=== PATIENT | male | born 1945 | race Caucasian/White ===

== ENCOUNTER 2016-07-19 12:16 | Observation (INO) | payer OTHER ==
[~2016-07-19] VITALS: Ht 180.3 cm; Wt 155.0 kg
[2016-07-19] VITALS (10 sets, daily range): BP systolic 125–195; BP diastolic 79–108; PULSE 84–124; RESP 16–24; TEMP 98.2–98.8; O2SAT 93–98
[~2016-07-19 12:16] MED LIST: ALBUS PO; ALLO300T2 PO; ASPI325T PO; BUDE.5I NEB; CARV3.12 PO; GLIP-158 PO; IPRA0.02 NEB; ISOS60 PO; MAGN1SOL2 PO; MINE1ENE RECTAL; NITR.4 SL; OMEP20TA39 PO; OXYC1SOL5 PO; POLY119S PO; SITA50TA4 PO; TAMS0.4C67 PO; Z.0.COMMODE-3:1
[2016-07-19] MEDS ORDERED: SODIUM CHLORIDE 0.9% FLUSH 5 ML FLUSH IVF PRN (13:00)
--- NOTE | 2016-07-19 13:07 | PD ---
HPI Chief Complaint: Cardiac Complaint Time Seen by Provider: 13:00 Travel History International Travel<30 days: No Contact w/Intl Traveler<30days: No Traveled to known affect area: No History of Present Illness HPI The patient is a 70-year-old male who presents emergency department for elevated heart rate. The patient was [facility] [place] [place] The patient was noted to have an elevated heart rate and was subsequently referred to the emergency department. The patient does have a previous history of atrial fibrillation with 2 previous cardiac ablations performed by Dr. Oconnor. 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 The patient's primary physician is Dr. Philip and the patient's assistant production manager is Dr. Garcia. The patient denies any chest pain, nausea, vomiting, or diaphoresis. He does note chronic shortness of breath, but denies any worsening of his symptoms. PFSH Past Medical History Hx Anticoagulant Therapy: Yes (COUMADIN) Arthritis: Yes Asthma: Yes Atrial Fibrillation: Yes Autoimmune Disease: No Heart Rhythm Problems: Yes Cancer: Yes (MELANOMA LT JAW AND BLADDER CANCER) Cardiac Catheterization: Yes (15-20 YEARS AGO) Cardiovascular Problems: Yes High Cholesterol: Yes Chemotherapy: Yes (HISTORY OF BLADDER CANCER (last 3 years)) Chest Pain: Yes COPD: No Cerebrovascular Accident: No Diabetes: Yes Diminished Hearing: No Endocrine: Yes Gastrointestinal Disorders: Yes (GERD, DUODENAL ULCER HX) GERD: Yes Gout: Yes Genitourinary: Yes (BLADDER INSTILLATIONS FOR CA IN PAST) Hepatitis: No Hiatal Hernia: No Hypertension: Yes Immune Disorder: No Kidney Stones: Yes Musculoskeletal: Yes (ARTHRITIS KNEES ,HANDS ,FEET) Neurologic: Yes Psychiatric: No Reproductive: No Respiratory: Yes (SLEEP APNEA WEARS CPAP, HX ASTHMA) Migraines: No Radiation Therapy: No Renal Failure: No Seizures: No Sickle Cell Disease: No Sleep Apnea: Yes (C-PAP.) Thyroid Disease: No Ulcer: No Past Surgical History Abdominal Surgery: No AICD: No Body Medical Devices: NONE Cardiac Surgery: Yes (ABLATION -2012 X2) Coronary Artery Bypass Graft: No Ear Surgery: No Endocrine Surgery: No Eye Surgery: No Genitourinary Surgery: Yes (MULTIPLE CYSTOS FOR BLADDER CANCER w/ biopsy) Gynecologic Surgery: No Joint Replacement: Yes (left knee) Oral Surgery: No Pacemaker: No Thoracic Surgery: No Other Surgery: Yes (skin melanoma REMOVED FROM JAW.) Social History Alcohol Use: Yes (OCC) Tobacco Use: No Substance Use: No Allergies-Medications (Allergen,Severity, Reaction): Coded Allergies: No Known Allergies (Unverified , 07/19/16) Reported Meds & Prescriptions Reported Meds & Active Scripts Active Reported Allopurinol 300 Mg Tab 300 Mg PO DAILY Aspirin 325 Mg Tab 325 Mg PO DAILY Budesonide Neb 0.5 Mg/2 Ml Neb 0.5 Mg NEB Q12HR NEB Carvedilol 3.125 Mg Tab 3.125 Mg PO BID Glimepiride 1 Mg Tab 1 Mg PO DAILY Take with breakfast or first main meal Isosorbide Mononitrate ER (Isosorbide Mononitrate) 60 Mg Tab 60 Mg PO DAILY Nitroglycerin SL (Nitroglycerin) 0.4 Mg Subl 0.4 Mg SL DIRECTED PRN ONE TABLET UNDER THE TONGUE NEEDED FOR CHEST PAIN, MAY REPEAT EVERY FIVE MINUTES FOR A TOTAL OF 3 DOSES OR CALL 911 IF NO RELIEF Omeprazole 20 Mg Tab 20 Mg PO BID Percocet (Oxycodone-Acetaminophen) 5-325 mg Tab 1 Tab PO Q6H PRN Janumet Xr (Sitagliptin-Metformin ER) 100-1,000 Mg Tab 1 Tab PO HS Tamsulosin (Tamsulosin HCl) 0.4 Mg Cap 0.4 Mg PO HS Warfarin 7.5 Mg Tab 7.5 Mg PO HS Lasix (Furosemide) 40 Mg Tab 40 Mg PO DAILY Zestoretic (Lisinopril-Hctz) 20-12.5 Mg Tab 1 Tab PO DAILY Duoneb (Ipratropium-Albuterol Neb) 0.5-2.5 Mg/3 Ml Neb 1 Nebule INH BID NEB Tizanidine (Tizanidine HCl) 4 Mg Tab 4 Mg PO TID Diclofenac Sodium DR (Diclofenac Sodium) 75 Mg Tabdr 75 Mg PO BID Review of Systems Except as stated in HPI: all other systems reviewed are Neg General / Constitutional: No: Fever HENT: No: Lightheadedness Cardiovascular: Positive: Irregular Rhythm, Tachycardia, No: Chest Pain or Discomfort, Diaphoresis Respiratory: Positive: Shortness of Breath (chronic shortness of breath, denies acute exacerbation) Gastrointestinal: No: Nausea, Vomiting, Abdominal Pain Musculoskeletal: No: Edema Neurologic: No: Dizziness Physical Exam Narrative GENERAL: Awake, alert, very pleasant 70-year-old male who appears his stated age and is in no acute respiratory distress. SKIN: Warm and dry. HEAD: Atraumatic. Normocephalic. Green surgical Guido above the left eye. EYES: No injection or drainage. ENT: No nasal bleeding or discharge. Mucous membranes pink and moist. NECK: Trachea midline. No JVD. CARDIOVASCULAR: Irregularly irregular with a heart rate in the 120s. No audible murmur. RESPIRATORY: No accessory muscle use. Clear to auscultation. Breath sounds equal bilaterally. MUSCULOSKELETAL: No obvious deformities. No clubbing. No cyanosis. No edema. NEUROLOGICAL: Awake and alert. No obvious cranial nerve deficits. Motor grossly within normal limits. Normal speech. Nonfocal. PSYCHIATRIC: Appropriate mood and affect; insight and judgment normal. Data Data Last Documented VS Vital Signs Date Time Temp Pulse Resp B/P Pulse Ox O2 Delivery O2 Flow Rate FiO2 07/19/16 16:00 113 22 156/96 96 Nasal Cannula 2 07/19/16 12:19 98.2 Orders Electrocardiogram (07/19/16 ) Ckmb (Isoenzyme) Profile (07/19/16 13:00) Complete Blood Count With Diff (07/19/16 13:00) Comprehensive Metabolic Panel (07/19/16 13:00) Magnesium (Mg) (07/19/16 13:00) Prothrombin Time / Inr (Pt) (07/19/16 13:00) Act Partial Throm Time (Ptt) (07/19/16 13:00) Troponin I (07/19/16 13:00) Ecg Monitoring (07/19/16 13:00) Iv Access Insert/Monitor (07/19/16 13:00) Oximetry (07/19/16 13:00) Oxygen Administration (07/19/16 13:00) Sodium Chloride 0.9% Flush (Ns Flush) (07/19/16 13:00) Diltiazem Inj (Cardizem Inj) (07/19/16 13:15) Diltiazem Inj (Cardizem Inj) (07/19/16 14:15) CKMB (07/19/16 14:15) CKMB% (07/19/16 14:15) Diltiazem (Cardizem) (07/19/16 16:15) Diet Heart Healthy (07/19/16 Dinner) Labs Laboratory Tests Test 07/19/16 07/19/16 12:20 14:15 White Blood Count 12.9 TH/MM3 Red Blood Count 5.66 MIL/MM3 Hemoglobin 15.3 GM/DL Hematocrit 47.6 % Mean Corpuscular Volume 84.1 FL Mean Corpuscular Hemoglobin 27.1 PG Mean Corpuscular Hemoglobin 32.2 % Concent Red Cell Distribution Width 17.9 % Platelet Count 224 TH/MM3 Mean Platelet Volume 10.1 FL Neutrophils (%) (Auto) 70.5 % Lymphocytes (%) (Auto) 20.3 % Monocytes (%) (Auto) 5.9 % Eosinophils (%) (Auto) 2.4 % Basophils (%) (Auto) 0.9 % Neutrophils # (Auto) 9.1 TH/MM3 Lymphocytes # (Auto) 2.6 TH/MM3 Monocytes # (Auto) 0.8 TH/MM3 Eosinophils # (Auto) 0.3 TH/MM3 Basophils # (Auto) 0.1 TH/MM3 CBC Comment DIFF FINAL Differential Comment Prothrombin Time 21.7 SEC Prothromb Time International 1.9 RATIO Ratio Activated Partial 35.7 SEC Thromboplast Time Sodium Level 142 MEQ/L Potassium Level 4.1 MEQ/L Chloride Level 103 MEQ/L Carbon Dioxide Level 27.6 MEQ/L Anion Gap 11 MEQ/L Blood Urea Nitrogen 22 MG/DL Creatinine 1.08 MG/DL Estimat Glomerular Filtration 67 ML/MIN Rate Random Glucose 139 MG/DL Calcium Level 9.8 MG/DL Magnesium Level 1.8 MG/DL Total Bilirubin 0.4 MG/DL Aspartate Amino Transf 19 U/L (AST/SGOT) Alanine Aminotransferase 31 U/L (ALT/SGPT) Alkaline Phosphatase 100 U/L Total Creatine Kinase 202 U/L Creatine Kinase MB 5.8 NG/ML Troponin I LESS THAN 0.02 NG/ML Total Protein 8.3 GM/DL Albumin 3.3 GM/DL MDM Medical Decision Making Medical Screen Exam Complete: Yes Emergency Medical Condition: Yes Medical Record Reviewed: Yes Interpretation(s) EKG reveals atrial fibrillation with RVR, rate 127. Q wave noted in lead 3. Laboratory Tests Test 07/19/16 07/19/16 12:20 14:15 White Blood Count 12.9 TH/MM3 Red Blood Count 5.66 MIL/MM3 Hemoglobin 15.3 GM/DL Hematocrit 47.6 % Mean Corpuscular Volume 84.1 FL Mean Corpuscular Hemoglobin 27.1 PG Mean Corpuscular Hemoglobin 32.2 % Concent Red Cell Distribution Width 17.9 % Platelet Count 224 TH/MM3 Mean Platelet Volume 10.1 FL Neutrophils (%) (Auto) 70.5 % Lymphocytes (%) (Auto) 20.3 % Monocytes (%) (Auto) 5.9 % Eosinophils (%) (Auto) 2.4 % Basophils (%) (Auto) 0.9 % Neutrophils # (Auto) 9.1 TH/MM3 Lymphocytes # (Auto) 2.6 TH/MM3 Monocytes # (Auto) 0.8 TH/MM3 Eosinophils # (Auto) 0.3 TH/MM3 Basophils # (Auto) 0.1 TH/MM3 CBC Comment DIFF FINAL Differential Comment Prothrombin Time 21.7 SEC Prothromb Time International 1.9 RATIO Ratio Activated Partial 35.7 SEC Thromboplast Time Sodium Level 142 MEQ/L Potassium Level 4.1 MEQ/L Chloride Level 103 MEQ/L Carbon Dioxide Level 27.6 MEQ/L Anion Gap 11 MEQ/L Blood Urea Nitrogen 22 MG/DL Creatinine 1.08 MG/DL Estimat Glomerular Filtration 67 ML/MIN Rate Random Glucose 139 MG/DL Calcium Level 9.8 MG/DL Magnesium Level 1.8 MG/DL Total Bilirubin 0.4 MG/DL Aspartate Amino Transf 19 U/L (AST/SGOT) Alanine Aminotransferase 31 U/L (ALT/SGPT) Alkaline Phosphatase 100 U/L Total Creatine Kinase 202 U/L Creatine Kinase MB 5.8 NG/ML Troponin I LESS THAN 0.02 NG/ML Total Protein 8.3 GM/DL Albumin 3.3 GM/DL Differential Diagnosis Differential diagnosis includes atrial fibrillation with RVR, atrial flutter, arrhythmia, electrolyte abnormality, dehydration, congestive heart failure, CAD. Narrative Course IV was established, labs are drawn and sent, and the patient was placed on cardiac telemetry monitoring and continuous pulse oximetry monitoring. EKG was ordered and interpreted. EKG reveals atrial fibrillation with RVR. The patient 's heart rate did come down to 92 after the initial bolus of Cardizem 20 mg, however, quickly came back into the 120s and 130s. Therefore, the patient was administered a second dose of Cardizem 25 mg intravenously. The patient's heart rate came down into the 90s and very between 9110. Electrolytes unremarkable and troponin is negative. The patient states his initial heart rate at the surgical center was between the 120s and 156. I called the on-call physician for his assistant production manager, Dr. Garrison. I discussed the patient with Dr. Robb who will evaluate the patient in the emergency department. The patient was evaluated by Dr. Robb in the emergency department who wrote by mouth orders for the Cardizem, recommends 23 hour observation to monitor for continuing tachycardia versus rate control. The patient has [employer] and is seen by Dr. Philip, therefore, [facility] were paged for 23 hour observation. Physician Communication Physician Communication I discussed the patient with Dr. Moore who agrees with 23 hour observation. Diagnosis Primary Impression: Atrial fibrillation with rapid ventricular response Admitting Information Admitting Physician Requests: Observation Condition: Stable Jann Escalante MD Jul 19, 2016 13:07
[2016-07-19] MEDS ORDERED: DILTIAZEM HCL 25 MG/5 ML VIAL IV ONE ×2 (13:15→14:15)
[2016-07-19 13:50] LABS: AUTOMATED NEUTROPHIL # 9.1 TH/MM3 (1.8-7.7); BASOPHIL # 0.1 TH/MM3 (0-0.2); BASOPHIL % 0.9 % (0.0-2.0); EOSINOPHIL # 0.3 TH/MM3 (0-0.4); EOSINOPHIL % 2.4 % (0.0-4.0); HEMATOCRIT 47.6 % (39.0-51.0); HEMO FLAGS DIFF FINAL; LYMPH % 20.3 % (9.0-44.0); LYMPHOCYTE # 2.6 TH/MM3 (1.0-4.8); MEAN CELL VOLUME 84.1 FL (80.0-100.0); MEAN CORPUSCULAR HEMOGLOBIN 27.1 PG (27.0-34.0); MEAN CORPUSCULAR HGB CONC 32.2 % (32.0-36.0); MONO % 5.9 % (0.0-8.0); NEUT % 70.5 % (16.0-70.0); PLATELET COUNT 224 TH/MM3 (150-450); RED BLOOD COUNT 5.66 MIL/MM3 (4.50-5.90); RED CELL DISTRIBUTION WIDTH 17.9 % (11.6-17.2); WHITE BLOOD COUNT 12.9 TH/MM3 (4.0-11.0)
[2016-07-19 14:41] LABS: APTT (PATIENT) 35.7 SEC (24.3-30.1); INTERNATIONAL NORMALIZED RATIO 1.9 RATIO; PROTHROMBIN TIME - PATIENT 21.7 SEC (9.8-11.6)
[2016-07-19 14:51] LABS: ALT (GPT) 31 U/L (12-78); ANION GAP 11 MEQ/L (5-15); BICARBONATE 27.6 MEQ/L (21.0-32.0); BLOOD UREA NITROGEN 22 MG/DL (7-18); CHLORIDE 103 MEQ/L (98-107); GLOMERULAR FILTRATION RATE 67 ML/MIN (>89); MAGNESIUM 1.8 MG/DL (1.5-2.5); SODIUM (NA) 142 MEQ/L (136-145)
[2016-07-19 14:54] LABS: ALKALINE PHOSPHATASE 100 U/L (45-117); CREATINE KINASE 202 U/L (39-308); TOTAL BILIRUBIN ADULT 0.4 MG/DL (0.2-1.0)
[2016-07-19 15:12] LABS: AST (GOT) 19 U/L (15-37); POTASSIUM 4.1 MEQ/L (3.5-5.1)
[2016-07-19 15:25] LABS: CKMB 5.8 NG/ML (0.5-3.6)
[2016-07-19] MEDS ORDERED: IPRASOL INH (15:26)
[2016-07-19] MEDS ORDERED: DICL75TA PO (15:26)
[2016-07-19] MEDS ORDERED: TIZA4TAB PO (15:26)
[2016-07-19] MEDS ORDERED: SITA100T PO (15:31)
[2016-07-19] MEDS ORDERED: PERC5TAB12 PO (15:31)
[2016-07-19] MEDS ORDERED: LISI-586 PO (15:31)
[2016-07-19] MEDS ORDERED: TAMS0.4C4 PO (15:31)
[2016-07-19] MEDS ORDERED: OMEP20TA PO (15:31)
[2016-07-19] MEDS ORDERED: WARF-21 PO (15:31)
[2016-07-19] MEDS ORDERED: FURO1TAB60 PO (15:31)
[2016-07-19] MEDS ORDERED: GLIM1TAB PO (15:37)
[2016-07-19] MEDS ORDERED: ALLO300T2 PO (15:37)
[2016-07-19] MEDS ORDERED: CARV3.12 PO (15:37)
[2016-07-19] MEDS ORDERED: ASPI325T PO (15:37)
[2016-07-19] MEDS ORDERED: BUDE0.5S NEB (15:37)
[2016-07-19] MEDS ORDERED: ISOS60TA PO (15:37)
[2016-07-19] MEDS ORDERED: NITR1SUB3 SL (15:37)
[2016-07-19] MEDS: DILTIAZEM HCL 60 MG TAB PO SCH ×3 (16:25→22:00)
--- NOTE | 2016-07-19 16:50 | MB ---
cc: LYNDON ORTIZ MD DATE OF CONSULTATION 07/19/2016 CONSULTATION Atrial fibrillation. HISTORY OF PRESENT ILLNESS Mr. Winter is a 70-year-old patient of my partner Dr. Washburn. He does have a history atrial fibrillation and is status post ablation x2 with the last one being in September of 2012. The patient reports he has been doing well since that time. He had a cataract removed 3 weeks ago and was fine then. Today, however, when he went for the cataract surgery on the other eye, he was found to be in atrial fibrillation with RVR and a heart rate in the 150s. He was subsequently asked to go to the emergency room. He was given some Cardizem and remains asymptomatic. PAST MEDICAL HISTORY Significant for: 1. Atrial fibrillation with ablation. 2. Asthma. 3. Arthritis. 4. DVT. 5. Melanoma. 6. Bladder cancer. 7. Diabetes. 8. Gastroesophageal reflux disease. 9. Gout. 10. Hypertension. 11. CPAP. SOCIAL HISTORY The patient does not smoke and occasionally drinks. ALLERGIES NO KNOWN DRUG ALLERGIES. MEDICATIONS Outpatient medications include: 1. MiraLax. 2. Oxycodone. 3. Janumet. 4. Albuterol. 5. Atrovent. 6. Pulmicort. 7. Carvedilol 3.125 milligrams twice a day. 8. Aspirin. 9. Omeprazole. 10. Glipizide. 11. Imdur 60 milligrams daily. 12. Allopurinol. 13. Nitroglycerine. 14. Flomax. REVIEW OF SYSTEMS Except as mentioned in the history of present illness all 12 systems are negative. PHYSICAL EXAMINATION VITAL SIGNS: Current vital signs are 100, 17, 157/84. GENERAL: He is a morbidly obese man who is in no apparent distress. NECK: Free from JVD. LUNGS: Bilaterally clear to auscultation. CARDIOVASCULAR: On examination he has an irregularly irregular rhythm that is tachycardic. No rubs or gallops are appreciated. ABDOMEN: Soft. EXTREMITIES: Are free from edema. LABORATORY DATA Significant for a white count of 12.9. The creatinine is 1.08. And troponin is less than 0.02. Telemetry - this does show atrial fibrillation with some RVR. IMPRESSION Atrial fibrillation - the patient has had some RVR. I would like to start him on the short acting Cardizem. The patient already is on Coumadin for his DVT and has an INR of 1.9. I would like to observe him overnight to ensure that we have reasonable rate control on this. Thank you for allowing me the opportunity to participate in his care. Abena Torres/CARROL /4:11 PM /4:32 PM
[2016-07-19] MEDS ORDERED: oxyCODONE/ACETAMINOPHEN 5 MG/325 MG TAB PO PRN (19:30)
[2016-07-19] MEDS ORDERED: ONDANSETRON HCL 4 MG/2 ML VIAL IVP PRN (19:30)
[2016-07-19] MEDS ORDERED: DEXTROSE 50% IN WATER 50 ML VIAL(D50) IV PUSH PRN (19:30)
[2016-07-19] MEDS ORDERED: MAGNESIUM HYDROXIDE SUSP 30 ML CUP PO PRN (19:30)
[2016-07-19] MEDS ORDERED: ACETAMINOPHEN 325 MG TAB PO PRN (19:30)
[2016-07-19] MEDS ORDERED: NALOXONE HCL 0.4 MG/ML AMP IV PRN (19:30)
[2016-07-19] MEDS ORDERED: SODIUM CHLORIDE 0.9% FLUSH 5 ML FLUSH FLUSH PRN (19:30)
[2016-07-19] MEDS ORDERED: GLUCAGON 1 MG/ML VIAL OTHER PRN (19:30)
[2016-07-19] MEDS: INSULIN ASPART SUPPLEMENTAL SCALE SQ SCH (21:00)
[2016-07-19] MEDS ORDERED: TAMSULOSIN HCL 0.4 MG CAP PO SCH (21:00)
[2016-07-19] MEDS ORDERED: WARFARIN SOD 7.5 MG TAB PO SCH (21:00)
[2016-07-19] MEDS: RESP: BUDESONIDE 0.5 MG/2 ML NEB NEB SCH (21:03)
--- NOTE | 2016-07-19 21:37 | HHI.HP ---
[facility] Service [facility] Primary Care Physician Stephon Philip M.D. Admission Diagnosis atrial fibrillation with RVR Diagnoses: Chief Complaint: afib Travel History International Travel<30 Days: No Contact w/Intl Traveler <30 Da: No Traveled to Known Affected Are: No History of Present Illness 70 y/o male with a history of afib, dm, Mitral valve prolapse,bladder cancer and Sleep apnea who was sent to the ED for evaluation of afib RVR. Patient states he was going into his cataract surgery appointment today at [facility] and was found to have an elevated heart rate and was sent to the ED. Patient has a history of AFIB in which he has had 2 ablations in 2016 and is followed [address] Washburn. The patients only complaint is palpitations. He denies any fever, chills, chest pain or sob. He is currently on Coumadin for a history of a DVT in [facility]. Patient has been seen by Dr. Robb who has started him on short acting Cardizem. Review of Systems Constitutional: DENIES: Fever, Chills Respiratory: DENIES: Cough, Sputum production, Shortness of breath Cardiovascular: COMPLAINS OF: Palpitations, DENIES: Chest pain, Syncope, Lower Extremity Edema Gastrointestinal: DENIES: Constipation, Diarrhea, Nausea, Vomiting Genitourinary: DENIES: Hematuria, Dysuria Musculoskeletal: DENIES: Back pain, Neck pain Integumentary: DENIES: Rash Hematologic/lymphatic: DENIES: Lymphadenopathy Immunologic/allergic: DENIES: Urticaria Neurologic: DENIES: Headache, Localized weakness Past Family Social History Past Medical History DM Afib Mitral valve prolapse bladder cancer Sleep apnea Past Surgical History Cataracts Ablation 2012 Melanoma removed on jaw Reported Medications Reported Meds & Active Scripts Active Reported Allopurinol 300 Mg Tab 300 Mg PO DAILY Aspirin 325 Mg Tab 325 Mg PO DAILY Budesonide Neb 0.5 Mg/2 Ml Neb 0.5 Mg NEB Q12HR NEB Carvedilol 3.125 Mg Tab 3.125 Mg PO BID Glimepiride 1 Mg Tab 1 Mg PO DAILY Take with breakfast or first main meal Isosorbide Mononitrate ER (Isosorbide Mononitrate) 60 Mg Tab 60 Mg PO DAILY Nitroglycerin SL (Nitroglycerin) 0.4 Mg Subl 0.4 Mg SL DIRECTED PRN ONE TABLET UNDER THE TONGUE NEEDED FOR CHEST PAIN, MAY REPEAT EVERY FIVE MINUTES FOR A TOTAL OF 3 DOSES OR CALL 911 IF NO RELIEF Omeprazole 20 Mg Tab 20 Mg PO BID Percocet (Oxycodone-Acetaminophen) 5-325 mg Tab 1 Tab PO Q6H PRN Janumet Xr (Sitagliptin-Metformin ER) 100-1,000 Mg Tab 1 Tab PO HS Tamsulosin (Tamsulosin HCl) 0.4 Mg Cap 0.4 Mg PO HS Warfarin 7.5 Mg Tab 7.5 Mg PO HS Lasix (Furosemide) 40 Mg Tab 40 Mg PO DAILY Zestoretic (Lisinopril-Hctz) 20-12.5 Mg Tab 1 Tab PO DAILY Duoneb (Ipratropium-Albuterol Neb) 0.5-2.5 Mg/3 Ml Neb 1 Nebule INH BID NEB Tizanidine (Tizanidine HCl) 4 Mg Tab 4 Mg PO TID Diclofenac Sodium DR (Diclofenac Sodium) 75 Mg Tabdr 75 Mg PO BID Allergies: Coded Allergies: No Known Allergies (Unverified , 07/19/16) Active Ordered Medications Current Medications Medications (Trade) Dose Ordered Sig/Krystin Route Start Time Stop Time Status Last Admin (Cardizem) 60 mg QID PO 07/19/16 16:15 07/19/16 18:28 (NS Flush) 2 ml UNSCH PRN FLUSH 07/19/16 19:30 (NS Flush) 2 ml BID FLUSH 07/19/16 21:00 (Tylenol) 650 mg Q4H PRN PO 07/19/16 19:30 (Zofran Inj) 4 mg Q6H PRN IVP 07/19/16 19:30 (Milk Of Magnesia Liq) 30 ml Q12H PRN PO 07/19/16 19:30 (Narcan Inj) 0.4 mg UNSCH PRN IV 07/19/16 19:30 (D50w (Vial) Inj) 25 ml UNSCH PRN IV PUSH 07/19/16 19:30 (Glucagon Inj) 1 mg UNSCH PRN OTHER 3/14/17 19:30 (Zyloprim) 300 mg DAILY PO 07/20/16 09:00 (Aspirin) 325 mg DAILY PO 07/20/16 09:00 (Coreg) 3.125 mg BID PO 07/19/16 21:00 (Voltaren Dr) 75 mg BID PO 07/19/16 21:00 (Lasix) 40 mg DAILY PO 07/20/16 09:00 (Amaryl) 1 mg DAILY@08 PO 07/20/16 08:00 (Imdur) 60 mg DAILY PO 07/20/16 09:00 (Percocet 5-325 Mg) 1 tab Q6H PRN PO 07/19/16 19:30 (Flomax) 0.4 mg HS PO 07/19/16 21:00 (Zanaflex) 4 mg TID PO 07/20/16 09:00 (Coumadin) 7.5 mg HS PO 07/19/16 21:00 (Prinivil) 20 mg DAILY PO 07/20/16 09:00 (Protonix) 20 mg BIDAC PO 07/20/16 07:00 (Januvia) 100 mg DAILY@18 PO 07/20/16 18:00 (Glucophage) 500 mg BIDPC PO 07/20/16 09:00 (Microzide) 12.5 mg DAILY PO 07/20/16 09:00 Family History Mom: Lung cancer Dad: [place] Social History Tobacco use: 1 cigar Alcohol use: seldom Illicit drug use: denies Physical Exam Vital Signs Vital Signs Date Time Temp Pulse Resp B/P Pulse Ox O2 Delivery O2 Flow Rate FiO2 07/19/16 17:00 110 24 135/82 95 Nasal Cannula 2 07/19/16 16:00 113 22 156/96 96 Nasal Cannula 2 07/19/16 15:00 96 18 157/89 98 Nasal Cannula 2 07/19/16 14:20 90 17 125/79 95 Nasal Cannula 2 07/19/16 14:00 104 18 179/96 95 Nasal Cannula 2 07/19/16 13:28 94 18 146/87 94 Nasal Cannula 07/19/16 13:05 93 Nasal Cannula 2 07/19/16 13:02 124 16 171/101 93 Room Air 07/19/16 13:02 Room Air 07/19/16 12:19 98.2 84 16 174/89 98 Physical Exam GENERAL: This is a well-nourished, well-developed patient, in no apparent distress. SKIN: No rashes, ecchymoses or lesions. Cool and dry. HEAD: Atraumatic. Normocephalic. No temporal or scalp tenderness. EYES: Pupils equal round and reactive. ENT: Nose without bleeding, purulent drainage or septal hematoma. Airway patent. NECK: Trachea midline. No JVD or lymphadenopathy. CARDIOVASCULAR: Regular rate and irregular rhythm without murmurs, gallops, or rubs. RESPIRATORY: Clear to auscultation. Breath sounds equal bilaterally. No wheezes , rales, or rhonchi. GASTROINTESTINAL: Abdomen soft, non-tender, nondistended. No hepato-splenomegaly , or palpable masses. No guarding. MUSCULOSKELETAL: Extremities without clubbing, cyanosis, or edema. No joint tenderness, effusion, or edema noted. No calf tenderness. NEUROLOGICAL: Awake and alert. Motor and sensory grossly within normal limits. Normal speech. Laboratory Laboratory Tests Test 07/19/16 07/19/16 12:20 14:15 White Blood Count 12.9 Red Blood Count 5.66 Hemoglobin 15.3 Hematocrit 47.6 Mean Corpuscular Volume 84.1 Mean Corpuscular Hemoglobin 27.1 Mean Corpuscular Hemoglobin 32.2 Concent Red Cell Distribution Width 17.9 Platelet Count 224 Mean Platelet Volume 10.1 Neutrophils (%) (Auto) 70.5 Lymphocytes (%) (Auto) 20.3 Monocytes (%) (Auto) 5.9 Eosinophils (%) (Auto) 2.4 Basophils (%) (Auto) 0.9 Neutrophils # (Auto) 9.1 Lymphocytes # (Auto) 2.6 Monocytes # (Auto) 0.8 Eosinophils # (Auto) 0.3 Basophils # (Auto) 0.1 CBC Comment DIFF FINAL Differential Comment Prothrombin Time 21.7 Prothromb Time International 1.9 Ratio Activated Partial 35.7 Thromboplast Time Sodium Level 142 Potassium Level 4.1 Chloride Level 103 Carbon Dioxide Level 27.6 Anion Gap 11 Blood Urea Nitrogen 22 Creatinine 1.08 Estimat Glomerular Filtration 67 Rate Random Glucose 139 Calcium Level 9.8 Magnesium Level 1.8 Total Bilirubin 0.4 Aspartate Amino Transf 19 (AST/SGOT) Alanine Aminotransferase 31 (ALT/SGPT) Alkaline Phosphatase 100 Total Creatine Kinase 202 Creatine Kinase MB 5.8 Troponin I LESS THAN 0.02 Total Protein 8.3 Albumin 3.3 Result Diagram: 07/19/16 1220 07/19/16 1415 Assessment and Plan Problem List: (1) Atrial fibrillation with rapid ventricular response ICD Code: I48.91 Status: Acute (2) Diabetes ICD Code: E11.9 Status: Acute Assessment and Plan 70 y/o male with a history of afib, dm, Mitral valve prolapse,bladder cancer and Sleep apnea who was sent to the ED for evaluation of afib RVR. Afib with RVR EKG shows afib with rvr Labs: troponin .02 -Consult cardiology, patient seen by Dr. Lay -Cont Cardizem ordered by cardiology -Cont home medications Coumadin, isosorbide mononitrate Diabetes, Chronic - Accu checks AC/Hs -Cont home medications metformin, januvia and HTN, chronic -Monitor vitals -cont home medications hydrochlorothiazide, coreg DVT prophylaxis: coumadin Written by Kenia MARTINEZ, acting as scribe for Dr. Krishnamurthy on 07/19/16 at 2133. Discussed Condition With Patient Attending Statement All or portions of this note were transcribed by scribe JUAN Khoury. I, Dr. Kei Krishnamurthy personally performed the history, physical exam, and medical decision making; and confirmed the accuracy of the information in the transcribed note. Authenticated by Dr. Kei Krishnamurthy on 07/20/16 at 00:59. Kenia Cooley Jul 19, 2016 21:37 Kei Krishnamurthy MD Jul 20, 2016 01:00
[2016-07-19] MEDS: DICLOFENAC SODIUM 75 MG DELAYED RELEASE TAB PO SCH (21:59)
[2016-07-19] MEDS: SODIUM CHLORIDE 0.9% FLUSH 5 ML FLUSH FLUSH SCH (21:59)
[2016-07-19] MEDS: CARVEDILOL 3.125 MG TAB PO SCH (22:00)
[2016-07-20 00:03] VITALS: BP 159/104; PULSE 99; RESP 18; TEMP 98; O2SAT 96
[2016-07-20 01:57] VITALS: PULSE 90
[2016-07-20 05:16] VITALS: BP 156/78; PULSE 78; RESP 18; TEMP 98.7; O2SAT 98
[2016-07-20] MEDS: INSULIN ASPART SUPPLEMENTAL SCALE SQ SCH ×3 (06:06→16:00)
[2016-07-20] MEDS: PANTOPRAZOLE SOD 20 MG DELAYED RELEASE TAB PO SCH ×2 (06:06→16:00)
[2016-07-20 07:10] LABS: INTERNATIONAL NORMALIZED RATIO 1.8 RATIO; PROTHROMBIN TIME - PATIENT 20.6 SEC (9.8-11.6)
--- NOTE | 2016-07-20 07:46 | PD.CARD.PN ---
Subjective Subjective Remarks Pt without complaints Objective Medications Current Medications Medications (Trade) Dose Ordered Sig/Krystin Route Start Time Stop Time Status Last Admin (Cardizem) 60 mg QID PO 07/19/16 16:15 07/19/16 22:00 (NS Flush) 2 ml UNSCH PRN FLUSH 07/19/16 19:30 (NS Flush) 2 ml BID FLUSH 07/19/16 21:00 07/19/16 21:59 (Tylenol) 650 mg Q4H PRN PO 07/19/16 19:30 (Zofran Inj) 4 mg Q6H PRN IVP 07/19/16 19:30 (Milk Of Magnesia Liq) 30 ml Q12H PRN PO 07/19/16 19:30 (Narcan Inj) 0.4 mg UNSCH PRN IV 07/19/16 19:30 (D50w (Vial) Inj) 25 ml UNSCH PRN IV PUSH 07/19/16 19:30 (Glucagon Inj) 1 mg UNSCH PRN OTHER 07/19/16 19:30 (Zyloprim) 300 mg DAILY PO 07/20/16 09:00 (Aspirin) 325 mg DAILY PO 07/20/16 09:00 (Coreg) 3.125 mg BID PO 07/19/16 21:00 07/19/16 22:00 (Voltaren Dr) 75 mg BID PO 07/19/16 21:00 07/19/16 21:59 (Lasix) 40 mg DAILY PO 07/20/16 09:00 (Amaryl) 1 mg DAILY@08 PO 07/20/16 08:00 (Imdur) 60 mg DAILY PO 07/20/16 09:00 (Percocet 5-325 Mg) 1 tab Q6H PRN PO 07/19/16 19:30 07/20/16 01:48 (Flomax) 0.4 mg HS PO 07/19/16 21:00 07/19/16 21:59 (Zanaflex) 4 mg TID PO 07/20/16 09:00 (Coumadin) 7.5 mg HS PO 07/19/16 21:00 07/19/16 22:00 (Prinivil) 20 mg DAILY PO 07/20/16 09:00 (Protonix) 20 mg BIDAC PO 07/20/16 07:00 07/20/16 06:06 (Januvia) 100 mg DAILY@18 PO 07/20/16 18:00 (Glucophage) 500 mg BIDPC PO 07/20/16 09:00 (Microzide) 12.5 mg DAILY PO 07/20/16 09:00 Vital Signs / I&O Vital Signs Date Time Temp Pulse Resp B/P Pulse Ox O2 Delivery O2 Flow Rate FiO2 07/20/16 05:16 98.7 78 18 156/78 98 07/20/16 01:57 90 07/20/16 00:03 98.0 99 18 159/104 96 07/19/16 23:10 98 Nasal Cannula 2.00 07/19/16 21:56 98.8 86 21 195/108 98 07/19/16 17:00 110 24 135/82 95 Nasal Cannula 2 07/19/16 16:00 113 22 156/96 96 Nasal Cannula 2 07/19/16 15:00 96 18 157/89 98 Nasal Cannula 2 07/19/16 14:20 90 17 125/79 95 Nasal Cannula 2 07/19/16 14:00 104 18 179/96 95 Nasal Cannula 2 07/19/16 13:28 94 18 146/87 94 Nasal Cannula 07/19/16 13:05 93 Nasal Cannula 2 07/19/16 13:02 124 16 171/101 93 Room Air 07/19/16 13:02 Room Air 07/19/16 12:19 98.2 84 16 174/89 98 I/O 07/19/16 07/19/16 07/19/16 07/20/16 07/20/16 07/20/16 07:00 15:00 23:00 07:00 15:00 23:00 Intake Total 480 ml Balance 480 ml Intake Oral 480 ml Physical Exam GENERAL: Well developed, well nourished. No acute distress. HEENT: Jugular venous pressure is normal. CHEST: Lungs clear to auscultation bilaterally. Unlabored respiratory effort. CARDIAC: irregular rate and rhythm without S3, S4, or murmur. ABDOMEN: Soft, nontender, no hepatosplenomegaly. Bowel sounds present. EXTREMITIES: No clubbing, cyanosis, or edema. Laboratory Laboratory Tests Test 07/19/16 07/19/16 07/20/16 12:20 14:15 06:37 White Blood Count 12.9 TH/MM3 Red Blood Count 5.66 MIL/MM3 Hemoglobin 15.3 GM/DL Hematocrit 47.6 % Mean Corpuscular Volume 84.1 FL Mean Corpuscular Hemoglobin 27.1 PG Mean Corpuscular Hemoglobin 32.2 % Concent Red Cell Distribution Width 17.9 % Platelet Count 224 TH/MM3 Mean Platelet Volume 10.1 FL Neutrophils (%) (Auto) 70.5 % Lymphocytes (%) (Auto) 20.3 % Monocytes (%) (Auto) 5.9 % Eosinophils (%) (Auto) 2.4 % Basophils (%) (Auto) 0.9 % Neutrophils # (Auto) 9.1 TH/MM3 Lymphocytes # (Auto) 2.6 TH/MM3 Monocytes # (Auto) 0.8 TH/MM3 Eosinophils # (Auto) 0.3 TH/MM3 Basophils # (Auto) 0.1 TH/MM3 CBC Comment DIFF FINAL Differential Comment Prothrombin Time 21.7 SEC 20.6 SEC Prothromb Time International 1.9 RATIO 1.8 RATIO Ratio Activated Partial 35.7 SEC Thromboplast Time Sodium Level 142 MEQ/L Potassium Level 4.1 MEQ/L Chloride Level 103 MEQ/L Carbon Dioxide Level 27.6 MEQ/L Anion Gap 11 MEQ/L Blood Urea Nitrogen 22 MG/DL Creatinine 1.08 MG/DL Estimat Glomerular Filtration 67 ML/MIN Rate Random Glucose 139 MG/DL Calcium Level 9.8 MG/DL Magnesium Level 1.8 MG/DL Total Bilirubin 0.4 MG/DL Aspartate Amino Transf 19 U/L (AST/SGOT) Alanine Aminotransferase 31 U/L (ALT/SGPT) Alkaline Phosphatase 100 U/L Total Creatine Kinase 202 U/L Creatine Kinase MB 5.8 NG/ML Troponin I LESS THAN 0.02 NG/ML Total Protein 8.3 GM/DL Albumin 3.3 GM/DL Assessment and Plan Assessment and Plan AF- fair rate control -coumadin per primary team HTN-continue lisinopril/hctz d/c if HR controlled with ambulation Lissett Robb MD Jul 20, 2016 07:46
[2016-07-20] MEDS ORDERED: GLIMEPIRIDE 1 MG TAB PO SCH (08:00)
[2016-07-20 08:48] VITALS: BP 137/97; PULSE 101; RESP 20; TEMP 98.4; O2SAT 95
[2016-07-20] MEDS ORDERED: ALLOPURINOL 300 MG TAB PO SCH (09:00)
[2016-07-20] MEDS ORDERED: FUROSEMIDE 40 MG TAB PO SCH (09:00)
[2016-07-20] MEDS ORDERED: ASPIRIN 325 MG TAB PO SCH (09:00)
[2016-07-20] MEDS ORDERED: HYDROCHLOROTHIAZIDE 12.5 MG CAP PO SCH (09:00)
[2016-07-20] MEDS ORDERED: LISINOPRIL 20 MG TAB PO SCH (09:00)
[2016-07-20] MEDS ORDERED: metFORMIN HCL 500 MG TAB PO SCH (09:00)
[2016-07-20] MEDS ORDERED: ISOSORBIDE MONONITRATE 60 MG TAB PO SCH (09:00)
[2016-07-20] MEDS: RESP: BUDESONIDE 0.5 MG/2 ML NEB NEB SCH (09:05)
[2016-07-20 09:06] VITALS: O2SAT 95
--- NOTE | 2016-07-20 09:31 | HHI.PR ---
Subjective Remarks Follow-up for Kaitlin. chayo with RVR. Patient is feeling better today. He has been ambulating here some. He states that Dr. Washburn follows his INR, no recent warfarin adjustments, due for check on Monday. Objective Vitals Vital Signs Date Time Temp Pulse Resp B/P Pulse Ox O2 Delivery O2 Flow Rate FiO2 07/20/16 09:06 95 21 07/20/16 08:48 98.4 101 20 137/97 95 07/20/16 05:16 98.7 78 18 156/78 98 07/20/16 01:57 90 07/20/16 00:03 98.0 99 18 159/104 96 07/19/16 23:10 98 Nasal Cannula 2.00 07/19/16 21:56 98.8 86 21 195/108 98 07/19/16 17:00 110 24 135/82 95 Nasal Cannula 2 07/19/16 16:00 113 22 156/96 96 Nasal Cannula 2 07/19/16 15:00 96 18 157/89 98 Nasal Cannula 2 07/19/16 14:20 90 17 125/79 95 Nasal Cannula 2 07/19/16 14:00 104 18 179/96 95 Nasal Cannula 2 07/19/16 13:28 94 18 146/87 94 Nasal Cannula 07/19/16 13:05 93 Nasal Cannula 2 07/19/16 13:02 124 16 171/101 93 Room Air 07/19/16 13:02 Room Air 07/19/16 12:19 98.2 84 16 174/89 98 I/O 07/19/16 07/19/16 07/19/16 07/20/16 07/20/16 07/20/16 07:00 15:00 23:00 07:00 15:00 23:00 Intake Total 480 ml Balance 480 ml Intake Oral 480 ml Result Diagram: 07/19/16 1220 07/19/16 1415 Objective Remarks GENERAL: Well-developed well-nourished morbidly obese. In no acute distress. SKIN: Warm and dry. No lesions noted. HEENT: Normocephalic. Pupils equal and round. Mucous membranes pink and moist. CARDIOVASCULAR: Distant heart sounds. Irregular rate and rhythm. No murmur appreciated. RESPIRATORY: No accessory muscle use. Clear to auscultation. Breath sounds equal bilaterally. GASTROINTESTINAL: Abdomen soft, non-tender, nondistended. Bowel sounds x4. MUSCULOSKELETAL: No obvious deformities. No clubbing or cyanosis. No edema. NEUROLOGICAL: Awake and alert. No focal neurological deficits. Moves upper and lower extremities spontaneously. Normal speech. PSYCHIATRIC: Appropriate mood and affect; insight and judgment normal. A/P Problem List: (1) Atrial fibrillation with rapid ventricular response ICD Code: I48.91 Status: Acute (2) Diabetes ICD Code: E11.9 Status: Chronic Assessment and Plan 70 y/o male with a history of afib, dm, Mitral valve prolapse,bladder cancer and Sleep apnea who was sent to the ED for evaluation of afib RVR. Afib with RVR EKG shows afib with rvr Labs: INR 1.8 today -Consulted cardiology, patient seen by Dr. Robb, clear for discharge if heart rate control when patient is ambulatory -Cont Cardizem as ordered by cardiology -Continue Coumadin with pharmacy consult to assist with dosing -Continue carvedilol and aspirin -Check TSH Diabetes, Chronic - Accu checks AC/Hs -Cont home medications metformin, Januvia and Other chronic medical conditions include RAHEEL, HTN, BPH: Stable at this time and will continue home medications as indicated DVT prophylaxis: Coumadin Written by Blas Long, acting as scribe for Dr. Sampson on 07/20/16 at 09:31. All or portions of this note were transcribed by scribe []. I, Dr. Olivier Sampson personally performed the history, physical exam, and medical decision making; and confirmed the accuracy of the information in the transcribed note. Authenticated by Dr. Olivier Sampson on 07/20/16 at 16:42. Discharge Planning Encouraged ambulation. Discharge planning for later today if heart rate is better controlled on increased diltiazem dose. Problem Qualifiers (1) Diabetes: Blas Long Jul 20, 2016 09:31 Olivier Sampson MD Jul 20, 2016 16:42
[2016-07-20] MEDS: DICLOFENAC SODIUM 75 MG DELAYED RELEASE TAB PO SCH (10:06)
[2016-07-20] MEDS: CARVEDILOL 3.125 MG TAB PO SCH (10:06)
[2016-07-20] MEDS: DILTIAZEM HCL 90 MG TAB PO SCH ×2 (10:06→13:35)
[2016-07-20] MEDS: SODIUM CHLORIDE 0.9% FLUSH 5 ML FLUSH FLUSH SCH (10:08)
[2016-07-20 13:11] VITALS: BP 143/81; PULSE 34; PULSE 97; RESP 20; O2SAT 95
[2016-07-20] MEDS ORDERED: DILT90TA PO (16:32)
[2016-07-20] MEDS ORDERED: DIGOXIN 0.5 MG/2 ML VIAL IV PUSH ONE (18:15)
[2016-07-20] MEDS ORDERED: DILTIAZEM HCL 90 MG TAB PO ONE (18:30)
--- NOTE | 2016-07-20 20:25 | EKG ---
Date Performed: 07/19/2016 Time Performed: 12:41:28 PTAGE: 70 years EKG: ATRIAL FIBRILLATION/FLUTTER WITH RAPID VENTRICULAR RESPONSE ABNORMAL RHYTHM ECG Compared to the PREVIOUS TRACING SR no longer present DOCTOR: Ramón Tony Interpretating Date/Time 07/20/2016 20:23:56
[2016-07-20] MEDS ORDERED: CARVEDILOL 3.125 MG TAB PO SCH (21:00)
[2016-07-21] MEDS ORDERED: DIGOXIN 0.25 MG TAB PO SCH (09:00)
--- NOTE | 2016-07-21 14:16 | EKG ---
Date Performed: 07/19/2016 Time Performed: 16:01:04 PTAGE: 70 years EKG: Sinus rhythm NORMAL ECG PREVIOUS TRACING : 12/05/2014 09.05 DOCTOR: Giovanni Silva Interpretating Date/Time 07/21/2016 14:07:55
== END 2016-07-20 19:05 | disposition home or self-care (01) ==
LOC: NEPC 12:16 → NEDA 17:09 → NEPHCDU 20:51
PROVIDERS: ADMIT Internal Medicine; ATTEND Internal Medicine
DX: I48.91 Unspecified atrial fibrillation (principal); H26.9 Unspecified cataract; I10 Essential (primary) hypertension; E11.9 Type 2 diabetes mellitus without complications; I34.1 Nonrheumatic mitral (valve) prolapse; F17.210 Nicotine dependence, cigarettes, uncomplicated; J45.909 Unspecified asthma, uncomplicated; E78.00 Pure hypercholesterolemia, unspecified; K21.9 Gastro-esophageal reflux disease without esophagitis; M10.9 Gout, unspecified; M19.042 Primary osteoarthritis, left hand; M19.041 Primary osteoarthritis, right hand; M19.079 Primary osteoarthritis, unspecified ankle and foot; G47.30 Sleep apnea, unspecified; Z99.81 Dependence on supplemental oxygen; Z96.652 Presence of left artificial knee joint; Z86.718 Personal history of other venous thrombosis and embolism; Z85.51 Personal history of malignant neoplasm of bladder; Z85.820 Personal history of malignant melanoma of skin; Z79.82 Long term (current) use of aspirin; Z79.01 Long term (current) use of anticoagulants; Z79.84 Long term (current) use of oral hypoglycemic drugs
CPT/HCPCS: 80053; 82550; 82552; 82948; 83735; 84443; 84484; 85025; 85610; 85730; 93005; 94640; 94664; 96374; 96376; 99285; G0378; J1815; J7626